=== PATIENT | male | born 1945 | race Caucasian/White ===

== ENCOUNTER 2019-01-07 06:06 | Inpatient (IN) ==
[2019-01-07] MEDS ORDERED: Albuterol 2.5 MG/3 ML NEBULIZER IH ONE ×2 (06:16→08:32)
[2019-01-07] MEDS ORDERED: levoFLOXacin 500 MG/100 ML 500 MG/100 ML BAG IVPB ONE (06:16)
[2019-01-07] MEDS ORDERED: Ringers Solution, Lactated 1,000 ML IVC SCH (06:30)
--- NOTE | 2019-01-07 07:08 | History & Physical Report ---
Date of Encounter: 01/07/19 Time of Encounter: 07:08 24 Hour HP Update - Instructions Instructions: If the History and Physical is less than 30 days old and was completed prior to A.M. admission and or procedure and has NOT been updated on calendar day of procedure please complete this update prior to performing procedure. - Update Patient reports changes in Medical Condition: No Changes in examination, assessment, or condition: No Changes in Medication: No Preop tests/diagnostics Reviewed: Yes Surgery Remains Indicated: Yes Consent for Planned Operative Procedure(s) Verified: Yes - Pre-Operative Checklist Preoperative Checklist Indicated: Yes Prophylactic Antibiotic Ordered: Yes Is VTE Prophylaxis Indicated?: Yes
--- NOTE | 2019-01-07 07:08 | Urology History & Physical ---
Date of Encounter: 01/07/19 Time of Encounter: 07:07 Assessment and Plan (1) Right renal mass Current Visit: Yes Status: Acute to OR today for right lap nephrectomy. History of Present Illness Chief complaint: right renal mass HPI: Mr. Gómez is a 73 year old male here for right radical nephrectomy. doing well. Past Med Surg Social Fam HX - Past Medical History Medical history: diabetes Psychiatric history: no psych history - Past Surgical History Surgical History: no surgical history - Social History Smoking Status: Never smoker Alcohol use: occasionally Drug use: none Medications and Allergies Amlodipine Besylate 10 mg PO DAILY 01/07/19 [History] Carvedilol [Coreg] 6.25 mg PO BIDWM 01/07/19 [History] Insulin Glargine,Hum.rec.anlog [Lantus Solostar] 40 unit SQ QPM 01/07/19 [History] Insulin LISPRO [Humalog] 100 unit SQ 01/07/19 [History] Lisinopril [Zestril] 20 mg PO DAILY 01/07/19 [History] Metformin HCl 1,000 mg PO DAILY 01/07/19 [History] Simvastatin [Zocor] 20 mg PO HS 01/07/19 [History] Turmeric Root Extract [Turmeric] 500 mg PO DAILY 01/07/19 [History] Allergy/AdvReac Type Severity Reaction Status Date / Time No Known Allergies Allergy Verified 12/01/18 19:38 Review of Systems - Constitutional no chills, no fever(s) - EENT Nose, mouth and throat: no dizziness - Cardiovascular no chest pain Exam Initial Vital Signs Temp Pulse Resp BP Pulse Ox 97.8 F 69 18 152/80 96 01/07/19 06:26 01/07/19 06:26 01/07/19 06:26 01/07/19 06:26 01/07/19 06:26 - General physical appearance Present: well developed, well nourished - Eyes Present: PERRL - Respiratory Present: normal respiratory effort Urology Results - Labs All other labs normal.
[2019-01-07] MEDS ORDERED: Dexamethasone 4 MG/ML VIAL ONE (07:09)
[2019-01-07] MEDS ORDERED: *HR* Succinylcholine 200 MG/10 ML VIAL IVP ONE (07:09)
[2019-01-07] MEDS ORDERED: Lidocaine -MPF 2% 2 ML VIAL ONE ×2 (07:09→08:58)
[2019-01-07] MEDS ORDERED: *HR* Rocuronium Bromide 50 MG/5 ML VIAL ONE ×2 (07:09→08:58)
[2019-01-07] MEDS ORDERED: Ondansetron 4 MG/2 ML VIAL ONE (07:09)
[2019-01-07] MEDS ORDERED: Lidocaine -MPF 4% 5 ML AMPUL ONE (07:09)
[2019-01-07] MEDS ORDERED: *HR* FentaNYL (PF) 100 MCG/2 ML VIAL ONE ×2 (07:10→09:01)
[2019-01-07] MEDS ORDERED: *HR* Midazolam HCl 2 MG/2 ML VIAL ONE (07:11)
[2019-01-07] MEDS ORDERED: *HR* Propofol 200 MG/20 ML VIAL IVP ONE (07:11)
[2019-01-07] MEDS ORDERED: *HR* Phenylephrine 10 MG/ML VIAL ONE (07:13)
[2019-01-07] MEDS ORDERED: LIDOCAINE 1% PF 2 ML AMPUL ONE (07:41)
[2019-01-07] MEDS ORDERED: Acetaminophen IV 1,000 MG/100 ML INFUS..BTL IVPB ONE (07:45)
[2019-01-07] MEDS ORDERED: Gabapentin 300 MG CAPSULE PO ONE (07:45)
[2019-01-07] MEDS ORDERED: traMADol 50 MG TABLET PO ONE (07:45)
--- NOTE | 2019-01-07 07:52 | Anesthesia Evaluation PreOp ---
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: Denies Any Significant HX Other Medical History: Diabetes Type II Alcohol Use: occasionally Drug use: none Medications and Allergies Amlodipine Besylate 10 mg PO DAILY 01/07/19 [History] Carvedilol [Coreg] 6.25 mg PO BIDWM 01/07/19 [History] Insulin Glargine,Hum.rec.anlog [Lantus Solostar] 40 unit SQ QPM 01/07/19 [History] Insulin LISPRO [Humalog] 100 unit SQ 01/07/19 [History] Lisinopril [Zestril] 20 mg PO DAILY 01/07/19 [History] Metformin HCl 1,000 mg PO DAILY 01/07/19 [History] Simvastatin [Zocor] 20 mg PO HS 01/07/19 [History] Turmeric Root Extract [Turmeric] 500 mg PO DAILY 01/07/19 [History] Allergy/AdvReac Type Severity Reaction Status Date / Time No Known Allergies Allergy Verified 12/01/18 19:38 - Meds/Allergy Pre-op Review Medications Reviewed: Yes Allergies Reviewed: Yes Beta Blockers on Current Med List: Yes If Beta Blockers taken, Date/Time (Last Dose taken): 01/06 2130 Anesthesia Exam Vital Signs/O2 Sat/Glucose, Most Recent Temp Pulse Resp BP Pulse Ox 97.8 F 69 18 152/80 96 01/07/19 06:26 01/07/19 06:26 01/07/19 06:26 01/07/19 06:26 01/07/19 06:26 Blood Glucose* 187 Weight: 111 KG - BMI 39 NPO (# of Hours): 8 - HEENT Mallampati: II Teeth: Missing - Cardiac Rhythm: Regular - Pulmonary Breath Sounds: bilateral Clear Anesthesia Assess/Plan ASA Score: 2 Anesthetic Plan: General Monitoring Plan: Standard Monitors Recovery Plan: PACU
[2019-01-07] MEDS ORDERED: *HR* OxyCODONE Immed Rel 5 MG TABLET PO PRN ×2 (08:32→12:10)
[2019-01-07] MEDS ORDERED: *HR* Promethazine 25 MG/ML VIAL IVP PRN (08:32)
[2019-01-07] MEDS ORDERED: Ondansetron 4 MG/2 ML VIAL IVP ONE (08:32)
[2019-01-07] MEDS ORDERED: *HR* Labetalol 20 MG/4 ML SYRINGE IVP PRN (08:32)
[2019-01-07] MEDS ORDERED: *HR* HYDROmorphone (PF) 1 MG/ML SYRINGE IVP PRN (08:32)
[2019-01-07] MEDS ORDERED: *HR* HYDROMORPHONE 2 MG/ML VIAL ONE (09:09)
--- NOTE | 2019-01-07 10:56 | Operative Note ---
Date of procedure: 01/07/19 Pre-op diagnosis: right renal mass Post-op diagnosis: same Procedure: Hand-assisted laparoscopic right nephrectomy Anesthesia: GETA Surgeon: Carlitos Thibodeaux Was there an assistant accounting manager present: Yes Service Line Bus Cleaner: Sil Jung Estimated blood loss (cc): 100 Specimen: Right kidney Condition: stable Disposition: PACU Procedure in Detail: Patient was prepped and draped in normal sterile fashion. Timeout procedure performed. I then made a right lower quadrant incision and carried this down and into the peritoneum. Hand port was placed in standard fashion. I then placed 2 12 mm trochars just lateral to the umbilicus on the right side in standard fashion. Upon placing the lens into the patient's abdomen patient did have a significant amount of adhesions on his right lateral wall. Using the aid of my assistant accounting manager Sil I was able to take these down using the Harmonic scalpel as well as the cold scissors as needed. I was then able to reflect the white line of Toldt medially. Was easily able to visualize the markedly enlarged right kidney. It was densely adherent to the lateral wall as well as the liver. At this point I was able to identify the ureter and the natural veins. I carry my dissection adjacent to the IVC was able to identify the renal hilum using my hands. I then took down the renal hilum using the echelon powered 60 mm stapler. I then proceeded to free up the remaining cranial aspect of the kidney using the Harmonic scalpel as well as a stapler. The kidney was then placed into a 15 mm Endo Catch bag. I then had to increase the size of my incision to accommodate the specimen. Specimen was then removed from the patient's abdomen. I then replaced the hand port back into the patient's abdomen and visualized the resection bed. The pneumoperitoneum was decreased to a pressure of 8 and no obvious bleeding was noted. I did place a piece of Surgicel in the resection bed. At this point when all counts were correct I then proceeded to close the fascia using running 0 PDS. Skin was closed using 4 Monocryl. Dermabond was placed over top. Patient taken to PACU in stable condition.
--- NOTE | 2019-01-07 11:59 | Anesthesia Evaluation Post Op ---
Date of Encounter: 01/07/19 Time of Encounter: 11:59 - Discharge PostOp Status: Transfer Patient to floor (Patient's vital signs have been reviewed. Patient is stable postoperatively and has adequately recovered from anesthesia. Patient is determined to have stable airway patency and respiratory function including respiratory rate and oxygen saturation. Patient has a stable heart rate, blood pressure and adequate hydration. Patients mental status is acceptable. Patients temperature is appropriate. Pain and nausea are adequately controlled.)
[2019-01-07] MEDS ORDERED: Naloxone 0.4 MG/ML INJ IVP PRN (12:10)
[2019-01-07] MEDS ORDERED: *HR* HYDROcodone/Acet 5/325 mg TABLET PO PRN (12:10)
[2019-01-07] MEDS ORDERED: *HR* Dextrose 50 % in Water (Syg) 50 ML SYRINGE IVP PRN (12:10)
[2019-01-07] MEDS ORDERED: Dextrose Gel 15 GM/37.5 ML TUBE PO PRN ×2 (12:10)
[2019-01-07] MEDS ORDERED: D5% in Water 1,000 ML IVC PRN (12:10)
[2019-01-07] MEDS ORDERED: Ondansetron 4 MG/2 ML VIAL IVP PRN (12:10)
[2019-01-07] MEDS: 0.9 % Sodium Chloride 1,000 ML IVC SCH ×2 (12:32→21:10)
[2019-01-07] MEDS: Insulin LISPRO 300 UNITS/3 ML VIAL SQ SCH ×2 (12:38→17:39)
--- NOTE | 2019-01-07 13:14 | Event Note ---
Date of Encounter: 01/07/19 Time of Encounter: 12:45 In to see patient postoperatively. Vital signs are stable. Ha catheter indwelling with opaque, fruit punch urine in catheter tubing. I unplugged catheter and proceeded to irrigate 750 mL of sterile water through catheter. Urine is improved to a transparent, light pink lemonade. I did not withdraw any clots. Catheter was reattached to bag, and nurse was instructed to call urology if urine becomes opaque and bright red again. If urine fails to remain clear, we may consider upsizing catheter and beginning continuous bladder irrigation.
[2019-01-08 02:19] LABS: Basophils % 0.3 %; Eosinophils % 0.1 %; Hematocrit 41.4 % (37.5-50.1); Hemoglobin 13.4 g/dL (12.9-16.9); Immature Granulocytes % 0.3 % (0-4); Lymphocytes # 1.1 K/mcL (0.6-4.6); Lymphocytes % 14.7 %; Mean Corpuscular HGB Conc 32.4 g/dL (31.6-35.5); Mean Corpuscular Hemoglobin 29.6 pg (28.0-33.3); Mean Corpuscular Volume 91.4 fL (83.0-100.0); Mean Platelet Volume 9.5 fL (9.4-12.4); Monocytes # 0.7 K/mcL (0.0-1.3); Monocytes % 9.4 %; Neutrophils # 5.8 K/mcL (1.6-8.9); Platelet Count 217 K/mcL (140-400); Red Blood Count 4.53 M/mcL (4.19-5.50); Segmented Neutrophils % 75.2 %; White Blood Count 7.8 K/mcL (4.3-11.1)
[2019-01-08 02:41] LABS: Potassium 4.7 mEq/L (3.5-5.1)
[2019-01-08] MEDS: 0.9 % Sodium Chloride 1,000 ML IVC SCH ×2 (04:59→17:05)
[2019-01-08] MEDS: Lisinopril 20 MG TABLET PO SCH (08:51)
[2019-01-08] MEDS: *HR* Metformin 500 MG TABLET PO SCH (08:51)
[2019-01-08] MEDS: Insulin LISPRO 300 UNITS/3 ML VIAL SQ SCH ×3 (08:51→17:01)
[2019-01-08] MEDS: amLODIPine 5 MG TABLET PO SCH (08:51)
--- NOTE | 2019-01-08 10:52 | Urology Progress Note ---
<Sil Jung N - Last Filed: 01/08/19 10:50> Date of Encounter: 01/08/19 Time of Encounter: 10:50 - Assessment and Plan (1) Right renal mass Current Visit: Yes Status: Acute Assessment and plan: Patient is a 73-year-old male who presents one day status post hand-assisted laparoscopic right nephrectomy. Patient experienced some gross hematuria postoperatively, and his catheter was irrigated at bedside. Vital signs are stable and afebrile. Hemoglobin is stable. Urine is now improved to a transparent tea color. We will plan to discontinue Ha catheter and encourage ambulation. Diet may be advanced once patient is passing flatus. Patient is tentatively planned for discharge tomorrow. Progress Note Subjective: no new complaints, feels better Narrative: POD #1. Patient seen and examined sitting upright in chair in no apparent dis tress. Patient is tolerating full liquids without nausea or vomiting. No flatus yet. Patient reports pain is well-controlled at present. Ha catheter is indwelling and draining transparent, tea color urine into bedside bag. Patient denies any fever, chills, chest pain, dyspnea or calf pain. Objective Initial Vital Signs Temp Pulse Resp BP Pulse Ox 98.4 F 50 14 148/73 96 01/01/19 12:30 01/01/19 12:30 01/01/19 12:30 01/01/19 12:30 01/01/19 12:30 - General physical appearance Present: well developed, no distress, no pain, obese - Respiratory Present: normal expansion, normal respiratory effort - Abdomen Present: soft, non tender, wound (Primary incisions clean, dry, intact). Absent: distended - Genitourinary Present: normal penis with no external lesions Urine Appearance: Present: Clear, Hematuria (Transparent, tea color urine) - Integumentary Present: no rash, no abnormal pigmentation - Musculoskeletal Present: normal posture - Psychiatric Present: oriented to time, oriented to person, oriented to place, speech is normal, memory intact - Labs 01/08/19 01:30 01/08/19 01:30 Diabetes panel 01/08/19 Range/Units 01:30 Sodium 135 L (136-145) mEq/L Potassium 4.7 (3.5-5.1) mEq/L Chloride 102 (98-107) mEq/L Carbon Dioxide 26 (23-29) mEq/L BUN 26 H (8-23) mg/dL Creatinine 1.46 H (0.70-1.30) mg/dL Glucose 207 H (70-105) mg/dL Calcium 8.0 L (8.6-10.3) mg/dL Calcium panel 01/08/19 Range/Units 01:30 Calcium 8.0 L (8.6-10.3) mg/dL Pituitary panel 01/08/19 Range/Units 01:30 Sodium 135 L (136-145) mEq/L Potassium 4.7 (3.5-5.1) mEq/L Chloride 102 (98-107) mEq/L Carbon Dioxide 26 (23-29) mEq/L BUN 26 H (8-23) mg/dL Creatinine 1.46 H (0.70-1.30) mg/dL Glucose 207 H (70-105) mg/dL Calcium 8.0 L (8.6-10.3) mg/dL Adrenal panel 01/08/19 Range/Units 01:30 Sodium 135 L (136-145) mEq/L Potassium 4.7 (3.5-5.1) mEq/L Chloride 102 (98-107) mEq/L Carbon Dioxide 26 (23-29) mEq/L BUN 26 H (8-23) mg/dL Creatinine 1.46 H (0.70-1.30) mg/dL Glucose 207 H (70-105) mg/dL Calcium 8.0 L (8.6-10.3) mg/dL Consult Discharge Plan - Plan Referrals: Riccardo Gonzalez MD [Primary Care Provider] - <Carlitos Thibodeaux - Last Filed: 01/08/19 14:33> Date of Encounter: 01/08/19 - Assessment and Plan (1) Right renal mass Current Visit: Yes Status: Acute Progress Note Narrative: Patient was seen and examined independently. I agree with the plan as written by Sil Jung. Patient has been up and ambulating early. Still with some blood in his catheter but this is improving. Catheter will be removed today. Patient remain on clear liquid diet until he passes flatus. Anticipation that he will be discharged home tomorrow. Objective Initial Vital Signs Temp Pulse Resp BP Pulse Ox 98.4 F 50 14 148/73 96 01/01/19 12:30 01/01/19 12:30 01/01/19 12:30 01/01/19 12:30 01/01/19 12:30 - Labs 01/08/19 01:30 01/08/19 01:30 Diabetes panel 01/08/19 Range/Units 01:30 Sodium 135 L (136-145) mEq/L Potassium 4.7 (3.5-5.1) mEq/L Chloride 102 (98-107) mEq/L Carbon Dioxide 26 (23-29) mEq/L BUN 26 H (8-23) mg/dL Creatinine 1.46 H (0.70-1.30) mg/dL Glucose 207 H (70-105) mg/dL Calcium 8.0 L (8.6-10.3) mg/dL Calcium panel 01/08/19 Range/Units 01:30 Calcium 8.0 L (8.6-10.3) mg/dL Pituitary panel 01/08/19 Range/Units 01:30 Sodium 135 L (136-145) mEq/L Potassium 4.7 (3.5-5.1) mEq/L Chloride 102 (98-107) mEq/L Carbon Dioxide 26 (23-29) mEq/L BUN 26 H (8-23) mg/dL Creatinine 1.46 H (0.70-1.30) mg/dL Glucose 207 H (70-105) mg/dL Calcium 8.0 L (8.6-10.3) mg/dL Adrenal panel 01/08/19 Range/Units 01:30 Sodium 135 L (136-145) mEq/L Potassium 4.7 (3.5-5.1) mEq/L Chloride 102 (98-107) mEq/L Carbon Dioxide 26 (23-29) mEq/L BUN 26 H (8-23) mg/dL Creatinine 1.46 H (0.70-1.30) mg/dL Glucose 207 H (70-105) mg/dL Calcium 8.0 L (8.6-10.3) mg/dL
[2019-01-08] MEDS ORDERED: Bisacodyl 10 MG RECTAL SUPPOSITORY RC PRN (19:00)
[2019-01-08] MEDS: Simethicone 80 MG TAB.CHEW PO PRN (23:52)
[2019-01-09] MEDS: Simethicone 80 MG TAB.CHEW PO PRN (07:41)
--- NOTE | 2019-01-09 07:50 | Urology Progress Note ---
Date of Encounter: 01/09/19 Time of Encounter: 07:47 - Assessment and Plan (1) Right renal mass Current Visit: Yes Status: Acute Assessment and plan: Postoperative day #2 status post right hand-assisted laparoscopic radical nephr ectomy. 1. Continue ambulation. 2. Continue clear liquid diet until return of bowel function. 3. He will continue to minimize narcotics in order to improve his bowel function. 4. Will give a Dulcolax suppository today. 5. He had a low-grade temperature. We will encourage incentive spirometry. 6. Anticipate he will remain in the hospital until bowel function returns. Progress Note Narrative: Postoperative day #2 status post right hand-assisted laparoscopic nephrectomy. He denies passing any gas. He feels bloated. He is urinating. His urine is an patti to tea color. His pain is adequately controlled. He has not taken any narcotics after surgery. He reports he is ambulating. He had a low-grade temperature yesterday. Objective Initial Vital Signs Temp Pulse Resp BP Pulse Ox 98.4 F 50 14 148/73 96 01/01/19 12:30 01/01/19 12:30 01/01/19 12:30 01/01/19 12:30 01/01/19 12:30 - General physical appearance Present: well developed, well nourished, no distress - Respiratory Present: normal respiratory effort - Abdomen Present: distended (Crepitus noted along the abdominal wall. Umbilical hernia is evident. Incisions are clean, dry, and intact.) - Genitourinary Present: normal penis with no external lesions - Integumentary Present: no rash - Labs 01/08/19 01:30 01/08/19 01:30 Consult Discharge Plan - Plan Referrals: Riccardo Gonzalez MD [Primary Care Provider] -
[2019-01-09] MEDS: Insulin LISPRO 300 UNITS/3 ML VIAL SQ SCH ×3 (08:50→17:54)
[2019-01-09] MEDS: amLODIPine 5 MG TABLET PO SCH (08:50)
[2019-01-09] MEDS: Lisinopril 20 MG TABLET PO SCH (08:50)
[2019-01-09] MEDS: *HR* Metformin 500 MG TABLET PO SCH (08:50)
[2019-01-10 08:09] VITALS: BP 145/75
[2019-01-10] MEDS: Insulin LISPRO 300 UNITS/3 ML VIAL SQ SCH (08:38)
[2019-01-10] MEDS: Lisinopril 20 MG TABLET PO SCH (08:38)
[2019-01-10] MEDS: *HR* Metformin 500 MG TABLET PO SCH (08:38)
[2019-01-10] MEDS: amLODIPine 5 MG TABLET PO SCH (08:38)
--- NOTE | 2019-01-10 08:55 | Discharge Summary ---
Orders not resulted at time of discharge: Pending orders 01/07/19 10:32 Surgical Pathology [PTH] Routine Date of Encounter: 01/10/19 Time of Encounter: 08:53 - Discharge Diagnosis (1) Right renal mass Priority: Primary Status: Acute - Hospital Course Hospital course: Mr. Gómez is a 73 year old male with history of a right renal mass. On 01/07/2019 he underwent a right hand-assisted laparoscopic nephrectomy. He had an uneventful postoperative course. As his bowel function improved his diet was slowly advanced. He was discharged home on 01/10/2019. - Time Spent with Patient Total time spent providing and/or coordinating discharge services: Less than 30 minutes Labs on day of discharge: Labs from last 24 hours 01/09/19 01/09/19 01/09/19 16:46 11:45 07:23 POC Glucose 216 H 242 H 190 H - Discharge Medications Prescriptions: New Docusate [Colace] 100 mg PO BID #60 capsule HYDROcodone/Acet 5/325 mg [Crandall 5-325 mg] 1 tab PO Q6H PRN 3 Days #10 tab PRN Reason: Pain Continued Simvastatin [Zocor] 20 mg PO HS Lisinopril [Zestril] 40 mg PO DAILY Insulin Glargine,Hum.rec.anlog [Lantus Solostar] 40 unit SQ QPM Carvedilol [Coreg] 6.25 mg PO BIDWM Amlodipine Besylate 10 mg PO DAILY Insulin LISPRO [Humalog] 0 unit SQ DAILY PRN PRN Reason: HIGH SUGAR Metformin HCl [Fortamet] 1,000 mg PO DAILY Home Medications: Amlodipine Besylate 10 mg PO DAILY 01/07/19 [History] Carvedilol [Coreg] 6.25 mg PO BIDWM 01/07/19 [History] Insulin Glargine,Hum.rec.anlog [Lantus Solostar] 40 unit SQ QPM 01/07/19 [History] Insulin LISPRO [Humalog] 0 unit SQ DAILY PRN 01/07/19 [History] Lisinopril [Zestril] 40 mg PO DAILY 01/07/19 [History] Simvastatin [Zocor] 20 mg PO HS 01/07/19 [History] Metformin HCl [Fortamet] 1,000 mg PO DAILY 01/08/19 [History] Docusate [Colace] 100 mg PO BID #60 capsule 01/10/19 [Rx] HYDROcodone/Acet 5/325 mg [Crandall 5-325 mg] 1 tab PO Q6H PRN 3 Days #10 tab 01/10/19 [Rx] Allergies/Adverse Reactions: Allergy/AdvReac Type Severity Reaction Status Date / Time No Known Allergies Allergy Verified 12/01/18 19:38 Date of admission: 01/07/19 12:06 Primary care physician: Riccardo Gonzalez MD Discharging clinician: Rafael Martinez Anticipated date of discharge: 01/10/19 Exam Initial Vital Signs Temp Pulse Resp BP Pulse Ox 98.4 F 50 14 148/73 96 01/01/19 12:30 01/01/19 12:30 01/01/19 12:30 01/01/19 12:30 01/01/19 12:30 - General physical appearance Present: well developed, well nourished, no distress - Eyes Absent: icteric - ENT Present: normal nares - Neck Present: trachea midline - Respiratory Present: normal respiratory effort - Cardiovascular Cardiovascular exam IM: RRR - Abdomen Abdomen: Present: soft (appropriately tender, wounds are clean, dry, and intact) - Integumentary Present: no rash - Neurologic Present: normal coordination - Musculoskeletal Present: normal gait - Patient Status Disposition: Home, Self-Care Condition: Good Functional capacity at discharge: independent ambulation Overall status at discharge: patient is progressing back to baseline - Discharge Instructions Follow Up With: Riccardo Gonzalez MD [Primary Care Provider] - Carlitos Thibodeaux MD [Partnered Physician] - (2 weeks.) Additional Instructions: 1. No heavy lifting greater than 20 pounds x2 weeks. 2. No tub baths x2 weeks. 3. May shower tomorrow. 4. He should follow up in 2 weeks for postoperative check. 5. He should return for any fevers, chills, nausea, vomiting, or significant swelling/ecchymosis. - Diet and Activity Activity: increase activity as tolerated Diet: advance to your usual diet
== END 2019-01-10 10:45 | disposition home or self-care (01) | DRG 658 ==
LOC: SAMDAY 06:06 → 3NENU 12:06
PROVIDERS: ADMIT Urology; ATTEND Urology

== ENCOUNTER 2021-01-21 10:51 | Inpatient (IN) ==
[2021-01-21] MEDS ORDERED: *HR* OxyCODONE/APAP 5/325 TABLET PO ONE (11:06)
[2021-01-21] MEDS ORDERED: Lidocaine/EPI 1:100k 1% 20 ML VIAL INFILT ONE (11:07)
[2021-01-21 11:35] LABS: Basophils % 0.2 %; Eosinophils # 0.1 K/mcL (0.0-0.6); Eosinophils % 0.4 %; Hematocrit 37.2 % (37.5-50.1); Hemoglobin 12.6 g/dL (12.9-16.9); Immature Granulocytes % 0.5 % (0-4); Lymphocytes # 0.9 K/mcL (0.6-4.6); Lymphocytes % 7.5 %; Mean Corpuscular HGB Conc 33.9 g/dL (31.6-35.5); Mean Corpuscular Hemoglobin 30.3 pg (28.0-33.3); Mean Corpuscular Volume 89.4 fL (83.0-100.0); Mean Platelet Volume 8.9 fL (9.4-12.4); Monocytes # 0.9 K/mcL (0.0-1.3); Monocytes % 7.6 %; Neutrophils # 10.3 K/mcL (1.6-8.9); Platelet Count 352 K/mcL (140-400); Red Blood Count 4.16 M/mcL (4.19-5.50); Red Cell Distribution Width 11.9 % (11.5-14.5); Segmented Neutrophils % 83.8 %; White Blood Count 12.3 K/mcL (4.3-11.1)
[2021-01-21 11:54] LABS: Calcium 8.7 mg/dL (8.6-10.3); Potassium 4.1 mEq/L (3.5-5.1); Uric Acid 8.4 mg/dL (2.3-7.6)
[2021-01-21 13:18] LABS: Source,Synovial Fluid RIGHT KNEE
[2021-01-21 13:44] LABS: Appearance,Synovial Fluid Cloudy (Clear-Hazy); Color,Synovial Fluid Straw (Straw)
[2021-01-21] MEDS ORDERED: Piperacillin/Tazobactam 3.375 GM in 0.9 % Sodium Chloride Mini Bag 100 ML IVPB ONE (14:26)
[2021-01-21] MEDS ORDERED: Vancomycin 1,750 MG/517.5 ML IV.SOLN IVPB ONE (14:29)
[2021-01-21] MEDS ORDERED: D5% in Water 1,000 ML IVC PRN ×2 (15:21→21:20)
[2021-01-21] MEDS ORDERED: Dextrose Gel 15 GM/37.5 ML TUBE PO PRN ×4 (15:21→21:20)
[2021-01-21] MEDS ORDERED: *HR* Dextrose 50 % in Water (Vial) 50 ML VIAL IVP PRN ×2 (15:21→21:20)
[2021-01-21] MEDS ORDERED: *HR* OxyCODONE Immed Rel 5 MG TABLET PO PRN ×4 (15:57→21:20)
[2021-01-21] MEDS ORDERED: Ondansetron 4 MG/2 ML VIAL IVP PRN ×2 (16:12→21:20)
[2021-01-21] MEDS ORDERED: Naloxone 0.4 MG/ML INJ IVP PRN ×2 (16:12→21:20)
[2021-01-21] MEDS ORDERED: 0.9 % Sodium Chloride 1,000 ML IVC SCH ×2 (16:15→21:20)
[2021-01-21] MEDS ORDERED: carvediloL 6.25 MG TABLET PO SCH (17:00)
[2021-01-21] MEDS ORDERED: Insulin LISPRO 300 UNITS/3 ML VIAL SUBQ SCH (18:00)
[2021-01-21] MEDS ORDERED: MethylPREDNISolone Acet(DEPOT) 80 MG/ML VIAL ONE (18:29)
[2021-01-21] MEDS ORDERED: Pregabalin 75 MG CAPSULE PO ONE ×2 (18:31→21:20)
[2021-01-21] MEDS ORDERED: *HR* HYDROmorphone (PF) 1 MG/ML SYRINGE IVP PRN ×2 (18:31→21:20)
[2021-01-21] MEDS ORDERED: *HR* HYDROmorphone 2 MG TABLET PO PRN ×2 (18:31→21:20)
[2021-01-21] MEDS ORDERED: Famotidine 20 MG/2 ML VIAL IVP ONE ×2 (18:31→21:20)
[2021-01-21] MEDS ORDERED: Acetaminophen IV 1,000 MG/100 ML BAG IVPB ONE ×3 (18:31→21:20)
[2021-01-21] MEDS ORDERED: *HR* Labetalol 20 MG/4 ML SYRINGE IVP PRN ×2 (18:31→21:20)
[2021-01-21] MEDS ORDERED: *HR* FentaNYL (PF) 100 MCG/2 ML VIAL ONE ×2 (18:50→19:04)
[2021-01-21] MEDS ORDERED: *HR* Propofol 200 MG/20 ML VIAL IVP ONE ×2 (18:50→19:17)
[2021-01-21] MEDS ORDERED: Lidocaine -MPF 2% 2 ML VIAL ONE (18:50)
[2021-01-21] MEDS ORDERED: Famotidine 20 MG/2 ML VIAL ONE (19:12)
[2021-01-21] MEDS ORDERED: Ondansetron 4 MG/2 ML VIAL ONE (19:17)
[2021-01-21] MEDS ORDERED: *HR* HYDROMORPHONE 2 MG/ML VIAL ONE (19:59)
[2021-01-21] MEDS ORDERED: *HR* OxyCODONE/APAP 5/325 TABLET PO PRN (20:24)
[2021-01-21] MEDS: Piperacillin/Tazobactam 3.375 GM in 0.9 % Sodium Chloride Mini Bag 100 ML IVPB SCH (21:47)
[2021-01-21] MEDS: *HR* OxyCODONE/APAP 5/325 TABLET PO PRN (21:52)
[2021-01-21] MEDS: carvediloL 6.25 MG TABLET PO SCH (21:52)
[2021-01-21] MEDS: *HR* Heparin 5,000 UNIT/ML VIAL SQ SCH (21:53)
[2021-01-21] MEDS: Sulfamethoxazole/Trimeth DS 1 EACH TABLET PO SCH (21:55)
[2021-01-21] MEDS ORDERED: Piperacillin/Tazobactam 3.375 GM in 0.9 % Sodium Chloride Mini Bag 100 ML IVPB SCH (22:00)
[2021-01-21] MEDS ORDERED: *HR* Heparin 5,000 UNIT/ML VIAL SQ SCH (22:00)
[2021-01-22] MEDS ORDERED: Vancomycin 1,250 MG/262.5 ML IV.SOLN IVPB SCH ×2 (03:00)
[2021-01-22] MEDS: *HR* OxyCODONE/APAP 5/325 TABLET PO PRN ×3 (03:23→13:11)
[2021-01-22 04:44] LABS: Basophils % 0.3 %; Eosinophils % 0.3 %; Hemoglobin 11.9 g/dL (12.9-16.9); Immature Granulocytes % 0.3 % (0-4); Lymphocytes # 0.8 K/mcL (0.6-4.6); Lymphocytes % 8.1 %; Mean Corpuscular HGB Conc 33.1 g/dL (31.6-35.5); Mean Corpuscular Hemoglobin 30.4 pg (28.0-33.3); Mean Corpuscular Volume 91.8 fL (83.0-100.0); Mean Platelet Volume 8.9 fL (9.4-12.4); Monocytes # 1.2 K/mcL (0.0-1.3); Monocytes % 11.9 %; Platelet Count 339 K/mcL (140-400); Red Blood Count 3.92 M/mcL (4.19-5.50); Segmented Neutrophils % 79.1 %; White Blood Count 10.1 K/mcL (4.3-11.1)
[2021-01-22 05:07] LABS: BUN/Creatinine Ratio 21 (6-26); Blood Urea Nitrogen 26 mg/dL (8-23); Calcium 8.5 mg/dL (8.6-10.3); Carbon Dioxide 26 mEq/L (23-29); Chloride 102 mEq/L (98-107); Glucose 193 mg/dL (70-105); Osmolality,Calculated 290 (280-300); Sodium 135 mEq/L (136-145); eGFR For African Americans > 60 (> 60); eGFR For Non-African Americans 56 (> 60)
[2021-01-22] MEDS: Piperacillin/Tazobactam 3.375 GM in 0.9 % Sodium Chloride Mini Bag 100 ML IVPB SCH ×3 (05:20→22:02)
[2021-01-22] MEDS: *HR* Heparin 5,000 UNIT/ML VIAL SQ SCH ×3 (05:20→20:05)
[2021-01-22] MEDS: carvediloL 6.25 MG TABLET PO SCH ×2 (05:24→17:01)
[2021-01-22] MEDS: lisinopriL 20 MG TABLET PO SCH (07:36)
[2021-01-22] MEDS: Sulfamethoxazole/Trimeth DS 1 EACH TABLET PO SCH ×2 (07:36→20:05)
[2021-01-22] MEDS: Insulin LISPRO 300 UNITS/3 ML VIAL SUBQ SCH ×4 (07:39→17:04)
[2021-01-22] MEDS ORDERED: *HR* Metformin 500 MG TABLET PO SCH (09:00)
[2021-01-22] MEDS ORDERED: amLODIPine 5 MG TABLET PO SCH ×2 (09:00)
[2021-01-22 09:47] LABS: Acinetobacter baumannii by PCR Not Detected (Not Detect); Candida albicans by PCR Not Detected (Not Detect); Candida glabrata by PCR Not Detected (Not Detect); Candida krusei by PCR Not Detected (Not Detect); Candida parapsilosis by PCR Not Detected (Not Detect); Candida tropicalis by PCR Not Detected (Not Detect); Enterobacter cloacae Cmplx PCR Not Detected (Not Detect); Enterobacteriaceae by PCR Not Detected (Not Detect); Enterococcus by PCR Not Detected (Not Detect); Escherichia coli by PCR Not Detected (Not Detect); Klebsiella oxytoca by PCR Not Detected (Not Detect); Klebsiella pneumoniae by PCR Not Detected (Not Detect); Proteus by PCR Not Detected (Not Detect); Pseudomonas aeruginosa by PCR Not Detected (Not Detect); Serratia marcescens by PCR Not Detected (Not Detect); Staphylococcus aureus by PCR DETECTED (Not Detect); Streptococcus agalactiae(B)PCR Not Detected (Not Detect); Streptococcus by PCR Not Detected (Not Detect); Streptococcus pneumoniae PCR Not Detected (Not Detect); Streptococcus pyogenes (A) PCR Not Detected (Not Detect); mecA Methicillin-Resist Gene Not Detected (Not Detect)
[2021-01-22] MEDS ORDERED: Morphine Sulfate 2 MG/ML SYRINGE IVP ONE (13:30)
[2021-01-22] MEDS: Vancomycin 1,250 MG/262.5 ML IV.SOLN IVPB SCH (16:37)
[2021-01-22] MEDS: Ibuprofen 600 MG TABLET PO PRN (17:02)
[2021-01-22] MEDS ORDERED: Insulin DETEMIR 100 UNIT/ML X5UNITS SUBQ SCH (18:00)
[2021-01-22] MEDS ORDERED: Insulin LISPRO 300 UNITS/3 ML VIAL SUBQ SCH ×2 (21:00)
[2021-01-23 02:57] LABS: Basophils % 0.4 %; Eosinophils # 0.1 K/mcL (0.0-0.6); Hematocrit 36.6 % (37.5-50.1); Hemoglobin 11.6 g/dL (12.9-16.9); Immature Granulocytes % 0.4 % (0-4); Lymphocytes % 12.4 %; Mean Corpuscular HGB Conc 31.7 g/dL (31.6-35.5); Mean Corpuscular Hemoglobin 29.5 pg (28.0-33.3); Mean Corpuscular Volume 93.1 fL (83.0-100.0); Mean Platelet Volume 8.8 fL (9.4-12.4); Monocytes # 0.8 K/mcL (0.0-1.3); Monocytes % 10.2 %; Neutrophils # 6.1 K/mcL (1.6-8.9); Platelet Count 319 K/mcL (140-400); Red Blood Count 3.93 M/mcL (4.19-5.50); Red Cell Distribution Width 11.9 % (11.5-14.5); Segmented Neutrophils % 75.6 %
[2021-01-23 03:13] LABS: Calcium 8.4 mg/dL (8.6-10.3); Potassium 4.2 mEq/L (3.5-5.1)
[2021-01-23] MEDS: Vancomycin 1,250 MG/262.5 ML IV.SOLN IVPB SCH (03:45)
[2021-01-23] MEDS: *HR* OxyCODONE/APAP 5/325 TABLET PO PRN ×2 (03:54→09:39)
[2021-01-23] MEDS: *HR* Heparin 5,000 UNIT/ML VIAL SQ SCH ×3 (05:54→22:03)
[2021-01-23] MEDS: Piperacillin/Tazobactam 3.375 GM in 0.9 % Sodium Chloride Mini Bag 100 ML IVPB SCH (05:54)
[2021-01-23] MEDS ORDERED: 0.9 % Sodium Chloride 1,000 ML IVC SCH (08:00)
[2021-01-23] MEDS: carvediloL 6.25 MG TABLET PO SCH ×2 (08:31→16:58)
[2021-01-23] MEDS: lisinopriL 20 MG TABLET PO SCH (08:31)
[2021-01-23] MEDS: Sulfamethoxazole/Trimeth DS 1 EACH TABLET PO SCH (08:32)
[2021-01-23] MEDS: Insulin LISPRO 300 UNITS/3 ML VIAL SUBQ SCH ×3 (08:34→16:58)
[2021-01-23] MEDS ORDERED: Cholecalciferol (D-3) 1,000 UNIT (25MCG) TABLET PO SCH (09:00)
[2021-01-23] MEDS ORDERED: NIFEdipine XL (24 HR) 60 MG TAB.ER.24 PO SCH (09:00)
[2021-01-23] MEDS ORDERED: hydroCHLOROthiazide 25 MG TABLET PO SCH (09:00)
[2021-01-23] MEDS ORDERED: Perflutren Lipid Microsphere 1.3 ML in 0.9 % Sodium Chloride 8.7 ML IVP PRN ×2 (13:58→21:28)
[2021-01-23] MEDS ORDERED: CeFAZolin 2,000 MG/120 ML BAG IVPB SCH (16:00)
[2021-01-23] MEDS ORDERED: ceFAZolin 2,000 MG in 0.9 % Sodium Chloride 100 ML IVPB SCH (16:00)
[2021-01-23] MEDS ORDERED: Ondansetron 4 MG/2 ML VIAL IVP PRN ×2 (19:21→21:28)
[2021-01-23] MEDS ORDERED: Morphine Sulfate 2 MG/ML SYRINGE IVP PRN (19:21)
[2021-01-23] MEDS ORDERED: Acetaminophen IV 1,000 MG/100 ML BAG IVPB ONE (19:24)
[2021-01-23] MEDS ORDERED: Metoclopramide 10 MG/2 ML VIAL ONE (19:24)
[2021-01-23] MEDS ORDERED: Famotidine 20 MG/2 ML VIAL ONE (19:24)
[2021-01-23] MEDS ORDERED: Lidocaine -MPF 2% 2 ML VIAL ONE (19:31)
[2021-01-23] MEDS ORDERED: *HR* Midazolam HCl 2 MG/2 ML VIAL ONE (19:31)
[2021-01-23] MEDS ORDERED: *HR* FentaNYL (PF) 100 MCG/2 ML VIAL ONE ×2 (19:31→20:35)
[2021-01-23] MEDS ORDERED: Ondansetron 4 MG/2 ML VIAL ONE (19:31)
[2021-01-23] MEDS ORDERED: *HR* Propofol 200 MG/20 ML VIAL IVP ONE (19:31)
[2021-01-23] MEDS ORDERED: *HR* Succinylcholine 200 MG/10 ML VIAL IVP ONE (19:31)
[2021-01-23] MEDS ORDERED: Lidocaine HCL 4 ML Topical Solution (Laryng-O-Jet Kit Sterile Pak) TP ONE (19:35)
[2021-01-23] MEDS ORDERED: Insulin DETEMIR 100 UNIT/ML X5UNITS SUBQ SCH (21:00)
[2021-01-23] MEDS: Ibuprofen 600 MG TABLET PO PRN (21:05)
[2021-01-23] MEDS ORDERED: Ibuprofen 600 MG TABLET PO PRN (21:28)
[2021-01-23] MEDS ORDERED: *HR* Dextrose 50 % in Water (Vial) 50 ML VIAL IVP PRN (21:28)
[2021-01-23] MEDS ORDERED: Naloxone 0.4 MG/ML INJ IVP PRN (21:28)
[2021-01-23] MEDS ORDERED: Dextrose Gel 15 GM/37.5 ML TUBE PO PRN ×2 (21:28)
[2021-01-23] MEDS ORDERED: D5% in Water 1,000 ML IVC PRN (21:28)
[2021-01-23] MEDS: 0.9 % Sodium Chloride 1,000 ML IVC SCH (22:03)
[2021-01-24] MEDS: CeFAZolin 2,000 MG/120 ML BAG IVPB SCH ×4 (00:41→23:31)
[2021-01-24] MEDS: *HR* Heparin 5,000 UNIT/ML VIAL SQ SCH ×3 (05:22→23:25)
[2021-01-24 06:10] LABS: Basophils % 0.1 %; Hematocrit 37.4 % (37.5-50.1); Hemoglobin 12.2 g/dL (12.9-16.9); Immature Granulocytes % 0.4 % (0-4); Lymphocytes # 0.4 K/mcL (0.6-4.6); Lymphocytes % 6.1 %; Mean Corpuscular HGB Conc 32.6 g/dL (31.6-35.5); Mean Corpuscular Hemoglobin 29.8 pg (28.0-33.3); Mean Corpuscular Volume 91.4 fL (83.0-100.0); Monocytes # 0.2 K/mcL (0.0-1.3); Monocytes % 2.5 %; Neutrophils # 6.2 K/mcL (1.6-8.9); Platelet Count 312 K/mcL (140-400); Red Blood Count 4.09 M/mcL (4.19-5.50); Red Cell Distribution Width 11.6 % (11.5-14.5); Segmented Neutrophils % 90.9 %; White Blood Count 6.8 K/mcL (4.3-11.1)
[2021-01-24 06:44] LABS: Calcium 8.6 mg/dL (8.6-10.3); Potassium 4.5 mEq/L (3.5-5.1)
[2021-01-24] MEDS: Cholecalciferol (D-3) 1,000 UNIT (25MCG) TABLET PO SCH (07:49)
[2021-01-24] MEDS: carvediloL 6.25 MG TABLET PO SCH ×2 (07:49→16:47)
[2021-01-24] MEDS: Sulfamethoxazole/Trimeth DS 1 EACH TABLET PO SCH ×2 (07:50→20:18)
[2021-01-24] MEDS: NIFEdipine XL (24 HR) 60 MG TAB.ER.24 PO SCH (07:50)
[2021-01-24] MEDS: hydroCHLOROthiazide 25 MG TABLET PO SCH (07:51)
[2021-01-24] MEDS: lisinopriL 20 MG TABLET PO SCH (07:51)
[2021-01-24] MEDS: Insulin LISPRO 300 UNITS/3 ML VIAL SUBQ SCH ×4 (07:52→20:19)
[2021-01-24] MEDS: *HR* OxyCODONE/APAP 5/325 TABLET PO PRN ×2 (11:28→16:56)
[2021-01-24] MEDS: 0.9 % Sodium Chloride 1,000 ML IVC SCH (16:46)
[2021-01-24] MEDS: *HR* OxyCODONE Immed Rel 5 MG TABLET PO PRN (20:18)
[2021-01-24] MEDS: Insulin DETEMIR 100 UNIT/ML X5UNITS SUBQ SCH (20:19)
[2021-01-24] MEDS ORDERED: Morphine Sulfate 2 MG/ML SYRINGE IVP ONE (22:37)
[2021-01-24] MEDS ORDERED: Ketorolac 30 MG/ML VIAL IVP ONE (22:38)
[2021-01-25] MEDS: *HR* Heparin 5,000 UNIT/ML VIAL SQ SCH ×3 (05:19→21:17)
[2021-01-25] MEDS: hydroCHLOROthiazide 25 MG TABLET PO SCH (08:28)
[2021-01-25] MEDS: *HR* OxyCODONE Immed Rel 5 MG TABLET PO PRN ×3 (08:28→21:16)
[2021-01-25] MEDS: carvediloL 6.25 MG TABLET PO SCH ×2 (08:28→18:35)
[2021-01-25] MEDS: NIFEdipine XL (24 HR) 60 MG TAB.ER.24 PO SCH (08:28)
[2021-01-25] MEDS: Cholecalciferol (D-3) 1,000 UNIT (25MCG) TABLET PO SCH (08:28)
[2021-01-25] MEDS: lisinopriL 20 MG TABLET PO SCH (08:29)
[2021-01-25] MEDS: Sulfamethoxazole/Trimeth DS 1 EACH TABLET PO SCH (08:29)
[2021-01-25] MEDS: Insulin LISPRO 300 UNITS/3 ML VIAL SUBQ SCH ×4 (08:30→21:18)
[2021-01-25] MEDS: CeFAZolin 2,000 MG/120 ML BAG IVPB SCH (08:30)
[2021-01-25] MEDS: 0.9 % Sodium Chloride 1,000 ML IVC SCH ×2 (08:35→12:05)
[2021-01-25 08:43] LABS: Basophils % 0.3 %; Eosinophils # 0.2 K/mcL (0.0-0.6); Eosinophils % 2.7 %; Hematocrit 32.9 % (37.5-50.1); Hemoglobin 10.9 g/dL (12.9-16.9); Immature Granulocytes % 0.3 % (0-4); Lymphocytes # 1.2 K/mcL (0.6-4.6); Lymphocytes % 19.4 %; Mean Corpuscular HGB Conc 33.1 g/dL (31.6-35.5); Mean Corpuscular Hemoglobin 30.1 pg (28.0-33.3); Mean Corpuscular Volume 90.9 fL (83.0-100.0); Mean Platelet Volume 9.1 fL (9.4-12.4); Monocytes # 0.8 K/mcL (0.0-1.3); Monocytes % 12.8 %; Neutrophils # 4.1 K/mcL (1.6-8.9); Platelet Count 378 K/mcL (140-400); Red Blood Count 3.62 M/mcL (4.19-5.50); Red Cell Distribution Width 11.8 % (11.5-14.5); Segmented Neutrophils % 64.5 %; White Blood Count 6.4 K/mcL (4.3-11.1)
[2021-01-25 09:02] LABS: Calcium 8.4 mg/dL (8.6-10.3); Potassium 3.7 mEq/L (3.5-5.1)
[2021-01-25] MEDS ORDERED: Lidocaine Viscous Oral Soln 15 ML SOLUTION MM PRN (09:26)
[2021-01-25] MEDS ORDERED: 0.9 % Sodium Chloride 500 ML IVC ONE (09:27)
[2021-01-25] MEDS: *HR* FentaNYL (PF) 100 MCG/2 ML VIAL IVP PRN ×3 (10:10→10:15)
[2021-01-25] MEDS: *HR* Midazolam HCl 5 MG/5 ML VIAL IVP PRN ×3 (10:10→10:15)
[2021-01-25] MEDS: cefTRIAXone 2,000 MG in 0.9 % Sodium Chloride Mini Bag 100 ML IVPB SCH (14:11)
[2021-01-25] MEDS: *HR* OxyCODONE/APAP 5/325 TABLET PO PRN (18:37)
[2021-01-25] MEDS: Insulin DETEMIR 100 UNIT/ML X5UNITS SUBQ SCH (21:17)
[2021-01-26] MEDS: 0.9 % Sodium Chloride 1,000 ML IVC SCH (00:34)
[2021-01-26] MEDS ORDERED: *HR* Labetalol 20 MG/4 ML SYRINGE IVP ONE (04:02)
[2021-01-26 05:24] LABS: Basophils % 0.5 %; Eosinophils # 0.3 K/mcL (0.0-0.6); Eosinophils % 4.7 %; Hematocrit 33.4 % (37.5-50.1); Immature Granulocytes % 0.4 % (0-4); Lymphocytes # 0.9 K/mcL (0.6-4.6); Mean Corpuscular HGB Conc 32.9 g/dL (31.6-35.5); Monocytes # 0.7 K/mcL (0.0-1.3); Monocytes % 12.3 %; Neutrophils # 3.6 K/mcL (1.6-8.9); Platelet Count 367 K/mcL (140-400); Red Blood Count 3.67 M/mcL (4.19-5.50); Red Cell Distribution Width 11.9 % (11.5-14.5); Segmented Neutrophils % 65.1 %; White Blood Count 5.5 K/mcL (4.3-11.1)
[2021-01-26 05:40] LABS: BUN/Creatinine Ratio 21 (6-26); Blood Urea Nitrogen 29 mg/dL (8-23); Calcium 8.6 mg/dL (8.6-10.3); Carbon Dioxide 26 mEq/L (23-29); Chloride 99 mEq/L (98-107); Glucose 169 mg/dL (70-105); Osmolality,Calculated 296 (280-300); Potassium 4.1 mEq/L (3.5-5.1); Sodium 138 mEq/L (136-145); eGFR For African Americans > 60 (> 60); eGFR For Non-African Americans 50 (> 60)
[2021-01-26] MEDS: *HR* Heparin 5,000 UNIT/ML VIAL SQ SCH ×3 (06:29→20:29)
[2021-01-26] MEDS: Cholecalciferol (D-3) 1,000 UNIT (25MCG) TABLET PO SCH (08:18)
[2021-01-26] MEDS: NIFEdipine XL (24 HR) 60 MG TAB.ER.24 PO SCH (08:19)
[2021-01-26] MEDS: cefTRIAXone 2,000 MG in 0.9 % Sodium Chloride Mini Bag 100 ML IVPB SCH (08:19)
[2021-01-26] MEDS: hydroCHLOROthiazide 25 MG TABLET PO SCH (08:19)
[2021-01-26] MEDS: lisinopriL 20 MG TABLET PO SCH (08:19)
[2021-01-26] MEDS: carvediloL 6.25 MG TABLET PO SCH ×2 (08:19→17:16)
[2021-01-26] MEDS: Insulin LISPRO 300 UNITS/3 ML VIAL SUBQ SCH ×4 (08:20→20:29)
[2021-01-26] MEDS: *HR* OxyCODONE Immed Rel 5 MG TABLET PO PRN ×2 (11:26→18:22)
[2021-01-26] MEDS: *HR* OxyCODONE/APAP 5/325 TABLET PO PRN (14:37)
[2021-01-26] MEDS ORDERED: *HR* Labetalol 20 MG/4 ML SYRINGE IVP PRN (18:27)
[2021-01-26] MEDS: Insulin DETEMIR 100 UNIT/ML X5UNITS SUBQ SCH (20:29)
[2021-01-27] MEDS: *HR* OxyCODONE/APAP 5/325 TABLET PO PRN ×3 (03:26→19:16)
[2021-01-27 03:47] LABS: Basophils % 0.3 %; Eosinophils # 0.3 K/mcL (0.0-0.6); Eosinophils % 3.8 %; Hematocrit 34.1 % (37.5-50.1); Hemoglobin 11.2 g/dL (12.9-16.9); Immature Granulocytes % 0.4 % (0-4); Lymphocytes % 14.2 %; Mean Corpuscular HGB Conc 32.8 g/dL (31.6-35.5); Mean Corpuscular Hemoglobin 29.8 pg (28.0-33.3); Mean Corpuscular Volume 90.7 fL (83.0-100.0); Mean Platelet Volume 8.6 fL (9.4-12.4); Monocytes # 0.9 K/mcL (0.0-1.3); Monocytes % 12.8 %; Neutrophils # 4.7 K/mcL (1.6-8.9); Platelet Count 361 K/mcL (140-400); Red Blood Count 3.76 M/mcL (4.19-5.50); Red Cell Distribution Width 11.9 % (11.5-14.5); Segmented Neutrophils % 68.5 %; White Blood Count 6.9 K/mcL (4.3-11.1)
[2021-01-27 04:05] LABS: BUN/Creatinine Ratio 17 (6-26); Blood Urea Nitrogen 20 mg/dL (8-23); Calcium 8.7 mg/dL (8.6-10.3); Carbon Dioxide 27 mEq/L (23-29); Chloride 101 mEq/L (98-107); Glucose 88 mg/dL (70-105); Osmolality,Calculated 282 (280-300); Potassium 3.8 mEq/L (3.5-5.1); Sodium 135 mEq/L (136-145); eGFR For African Americans > 60 (> 60); eGFR For Non-African Americans > 60 (> 60)
[2021-01-27] MEDS: *HR* Heparin 5,000 UNIT/ML VIAL SQ SCH ×3 (05:53→20:21)
[2021-01-27] MEDS: Cholecalciferol (D-3) 1,000 UNIT (25MCG) TABLET PO SCH (07:28)
[2021-01-27] MEDS: carvediloL 6.25 MG TABLET PO SCH ×2 (07:28→18:05)
[2021-01-27] MEDS: lisinopriL 20 MG TABLET PO SCH (07:28)
[2021-01-27] MEDS: NIFEdipine XL (24 HR) 60 MG TAB.ER.24 PO SCH (07:28)
[2021-01-27] MEDS: hydroCHLOROthiazide 25 MG TABLET PO SCH (07:28)
[2021-01-27] MEDS: cefTRIAXone 2,000 MG in 0.9 % Sodium Chloride Mini Bag 100 ML IVPB SCH (07:29)
[2021-01-27] MEDS: Insulin LISPRO 300 UNITS/3 ML VIAL SUBQ SCH ×4 (07:29→20:31)
[2021-01-27] MEDS: NIFEdipine XL (24 HR) 30 MG TAB.ER.24 PO SCH (09:14)
[2021-01-27] MEDS ORDERED: NIFEdipine XL (24 HR) 30 MG TAB.ER.24 PO ONE (11:20)
[2021-01-27] MEDS ORDERED: Melatonin 3 MG TABLET PO PRN (15:49)
[2021-01-27] MEDS: Insulin DETEMIR 100 UNIT/ML X5UNITS SUBQ SCH (20:21)
[2021-01-28] MEDS: *HR* OxyCODONE/APAP 5/325 TABLET PO PRN ×4 (02:50→23:06)
[2021-01-28 03:12] LABS: Hematocrit 33.1 % (37.5-50.1); Hemoglobin 10.9 g/dL (12.9-16.9); Mean Corpuscular HGB Conc 32.9 g/dL (31.6-35.5); Mean Corpuscular Hemoglobin 30.1 pg (28.0-33.3); Mean Corpuscular Volume 91.4 fL (83.0-100.0); Mean Platelet Volume 8.7 fL (9.4-12.4); Platelet Count 366 K/mcL (140-400); Red Blood Count 3.62 M/mcL (4.19-5.50); Red Cell Distribution Width 11.8 % (11.5-14.5); White Blood Count 8.2 K/mcL (4.3-11.1)
[2021-01-28 03:20] LABS: Estimated Average Glucose 174 mg/dl; Hemoglobin A1C 7.7 %
[2021-01-28 03:33] LABS: BUN/Creatinine Ratio 17 (6-26); Blood Urea Nitrogen 21 mg/dL (8-23); Calcium 8.5 mg/dL (8.6-10.3); Carbon Dioxide 27 mEq/L (23-29); Chloride 98 mEq/L (98-107); Glucose 303 mg/dL (70-105); Magnesium 1.8 mg/dL (1.6-2.6); Osmolality,Calculated 288 (280-300); Phosphorous 3.1 mg/dL (2.7-4.5); Sodium 132 mEq/L (136-145); eGFR For African Americans > 60 (> 60); eGFR For Non-African Americans 55 (> 60)
[2021-01-28] MEDS: *HR* Heparin 5,000 UNIT/ML VIAL SQ SCH ×3 (05:30→20:30)
[2021-01-28] MEDS: hydroCHLOROthiazide 25 MG TABLET PO SCH (08:41)
[2021-01-28] MEDS: Cholecalciferol (D-3) 1,000 UNIT (25MCG) TABLET PO SCH (08:42)
[2021-01-28] MEDS: carvediloL 6.25 MG TABLET PO SCH ×2 (08:42→16:51)
[2021-01-28] MEDS: Multivit/Ca/Min/Fe/FA 1 TAB TABLET PO SCH (08:42)
[2021-01-28] MEDS: NIFEdipine XL (24 HR) 30 MG TAB.ER.24 PO SCH (08:42)
[2021-01-28] MEDS: lisinopriL 20 MG TABLET PO SCH (08:42)
[2021-01-28] MEDS: cefTRIAXone 2,000 MG in 0.9 % Sodium Chloride Mini Bag 100 ML IVPB SCH (08:42)
[2021-01-28] MEDS: Insulin LISPRO 300 UNITS/3 ML VIAL SUBQ SCH ×4 (08:49→20:35)
[2021-01-28] MEDS: Calcium Gluconate 1gm/50mL 1 GM/50 ML BAG IVPB SCH ×2 (10:44→11:45)
[2021-01-28] MEDS: Insulin DETEMIR 100 UNIT/ML X5UNITS SUBQ SCH (20:30)
[2021-01-29] MEDS: *HR* OxyCODONE/APAP 5/325 TABLET PO PRN ×3 (03:14→20:07)
[2021-01-29 03:33] LABS: Hematocrit 32.9 % (37.5-50.1); Hemoglobin 10.7 g/dL (12.9-16.9); Mean Corpuscular HGB Conc 32.5 g/dL (31.6-35.5); Mean Corpuscular Hemoglobin 29.6 pg (28.0-33.3); Mean Corpuscular Volume 91.1 fL (83.0-100.0); Mean Platelet Volume 8.6 fL (9.4-12.4); Platelet Count 399 K/mcL (140-400); Red Blood Count 3.61 M/mcL (4.19-5.50); Red Cell Distribution Width 11.9 % (11.5-14.5); White Blood Count 9.4 K/mcL (4.3-11.1)
[2021-01-29 03:55] LABS: Calcium 8.6 mg/dL (8.6-10.3); Magnesium 2.1 mg/dL (1.6-2.6); Potassium 3.8 mEq/L (3.5-5.1)
[2021-01-29 04:18] LABS: Folate 11.1 ng/mL (3.0-16.0)
[2021-01-29] MEDS: *HR* Heparin 5,000 UNIT/ML VIAL SQ SCH ×3 (05:26→22:35)
[2021-01-29] MEDS: lisinopriL 20 MG TABLET PO SCH (08:15)
[2021-01-29] MEDS: Multivit/Ca/Min/Fe/FA 1 TAB TABLET PO SCH (08:15)
[2021-01-29] MEDS: *HR* OxyCODONE Immed Rel 5 MG TABLET PO PRN ×3 (08:15→22:47)
[2021-01-29] MEDS: hydroCHLOROthiazide 25 MG TABLET PO SCH (08:16)
[2021-01-29] MEDS: NIFEdipine XL (24 HR) 30 MG TAB.ER.24 PO SCH (08:16)
[2021-01-29] MEDS: carvediloL 6.25 MG TABLET PO SCH ×2 (08:16→16:37)
[2021-01-29] MEDS: Cholecalciferol (D-3) 1,000 UNIT (25MCG) TABLET PO SCH (08:16)
[2021-01-29] MEDS: Insulin LISPRO 300 UNITS/3 ML VIAL SUBQ SCH ×4 (08:17→20:07)
[2021-01-29] MEDS: cefTRIAXone 2,000 MG in 0.9 % Sodium Chloride Mini Bag 100 ML IVPB SCH (08:17)
[2021-01-29] MEDS: 0.9 % Sodium Chloride 1,000 ML IVC SCH ×3 (08:19→23:32)
[2021-01-29] MEDS ORDERED: Iron Sucrose Complex 400 MG in 0.9 % Sodium Chloride 250 ML IVPB ONE (08:33)
[2021-01-29] MEDS: Insulin DETEMIR 100 UNIT/ML X5UNITS SUBQ SCH (20:08)
[2021-01-30] MEDS: 0.9 % Sodium Chloride 1,000 ML IVC SCH (01:45)
[2021-01-30] MEDS: *HR* OxyCODONE/APAP 5/325 TABLET PO PRN ×2 (03:12→07:55)
[2021-01-30] MEDS ORDERED: Acetaminophen IV 1,000 MG/100 ML BAG IVPB ONE (03:43)
[2021-01-30] MEDS: *HR* Heparin 5,000 UNIT/ML VIAL SQ SCH (05:09)
[2021-01-30 07:05] LABS: Hematocrit 31.5 % (37.5-50.1); Hemoglobin 10.2 g/dL (12.9-16.9); Mean Corpuscular HGB Conc 32.4 g/dL (31.6-35.5); Mean Corpuscular Hemoglobin 30.1 pg (28.0-33.3); Mean Corpuscular Volume 92.9 fL (83.0-100.0); Mean Platelet Volume 8.7 fL (9.4-12.4); Platelet Count 408 K/mcL (140-400); Red Blood Count 3.39 M/mcL (4.19-5.50); Red Cell Distribution Width 11.9 % (11.5-14.5); White Blood Count 9.3 K/mcL (4.3-11.1)
[2021-01-30 07:26] LABS: Calcium 8.4 mg/dL (8.6-10.3); Magnesium 2.1 mg/dL (1.6-2.6); Phosphorous 4.4 mg/dL (2.7-4.5); Potassium 3.6 mEq/L (3.5-5.1)
[2021-01-30] MEDS: Insulin LISPRO 300 UNITS/3 ML VIAL SUBQ SCH (07:45)
[2021-01-30] MEDS: lisinopriL 20 MG TABLET PO SCH (07:46)
[2021-01-30] MEDS: hydroCHLOROthiazide 25 MG TABLET PO SCH (07:46)
[2021-01-30] MEDS: carvediloL 6.25 MG TABLET PO SCH (07:46)
[2021-01-30] MEDS: Multivit/Ca/Min/Fe/FA 1 TAB TABLET PO SCH (07:46)
[2021-01-30] MEDS: cefTRIAXone 2,000 MG in 0.9 % Sodium Chloride Mini Bag 100 ML IVPB SCH (07:46)
[2021-01-30] MEDS: NIFEdipine XL (24 HR) 30 MG TAB.ER.24 PO SCH (07:47)
[2021-01-30] MEDS: Cholecalciferol (D-3) 1,000 UNIT (25MCG) TABLET PO SCH (07:47)
[2021-01-30 11:11] VITALS: BP 162/71; PULSE 87; TEMP 98.1; O2SAT 95
== END 2021-01-30 12:10 | disposition home health service (06) | DRG 549 ==
LOC: 3NENU 10:51 → EMEROOARM 10:51 → SUATTDRO 15:31 → 3NENU 16:50 → SUATTDRO 01-22 14:43
PROVIDERS: ADMIT Internal Medicine; ATTEND Internal Medicine